=== PATIENT | male | born 1955 | race Two or more races ===

== ENCOUNTER 2021-10-14 13:01 | Outpatient (REF) | payer MEDICARE, MEDICAID, SELFPAY ==
[2021-10-14 14:08] LABS: COVID-19 Test Negative (Negative); IDNOW Serial# 08D9AD1C
== END 2021-10-14 13:02 | disposition home or self-care (01) ==
LOC: HO.LAB 13:01
PROVIDERS: Visit Provider Internal Medicine
DX: Z20.822 Contact with and (suspected) exposure to COVID-19 (principal)
CPT/HCPCS: 87635; C9803